=== PATIENT | male | born 1950 | race Caucasian/White ===

== ENCOUNTER → 2019-02-15 | Outpatient (CLI) | payer OTHER | END | disposition home or self-care (01) | LOC: RAD 12:47 | PROVIDERS: ATTEND Family Medicine | DX: K22.8 Other specified diseases of esophagus (principal); Z98.890 Other specified postprocedural states; Z88.8 Allergy status to other drugs, medicaments and biological substances; Z79.899 Other long term (current) drug therapy | CPT/HCPCS: 74220 ==